=== PATIENT | female | born 1990 | race Asian ===

== ENCOUNTER 2023-10-26 15:02 | Emergency (ER) | payer OTHER ==
[~2023-10-26] VITALS: Ht 157.5 cm; Wt 45.0 kg
[2023-10-26 15:25] VITALS: BP 98/48; PULSE 80; RESP 16; TEMP 97.4; O2SAT 98
[2023-10-29 08:30] LABS: Hepatitis B Surface Antibody Positive (Negative)
[2023-10-29 08:43] LABS: Hepatitis B Surface Antigen Negative (Negative)
== END 2023-10-26 16:04 | disposition home or self-care (01) ==
LOC: ER 15:02
DX: S61.233A Puncture wound without foreign body of left middle finger without damage to nail, initial encounter (principal); Z20.5 Contact with and (suspected) exposure to viral hepatitis; Z79.01 Long term (current) use of anticoagulants; Z79.899 Other long term (current) drug therapy; W46.0XXA Contact with hypodermic needle, initial encounter; Y93.89 Activity, other specified; Y92.89 Other specified places as the place of occurrence of the external cause; Y99.8 Other external cause status
CPT/HCPCS: 36415; 86703; 86706; 86803; 87340

== ENCOUNTER → 2024-01-15 | Outpatient (CLI) | payer OTHER ==
[2024-01-17 09:24] LABS: Hepatitis B Surface Antibody Positive (Negative)
[2024-01-17 09:34] LABS: Hepatitis B Surface Antigen Negative (Negative)
== END | disposition home or self-care (01) ==
LOC: LAB 08:52
PROVIDERS: ATTEND Family Medicine
DX: S69.92XA Unspecified injury of left wrist, hand and finger(s), initial encounter (principal); W46.1XXA Contact with contaminated hypodermic needle, initial encounter; Y93.89 Activity, other specified; Y92.89 Other specified places as the place of occurrence of the external cause; Y99.8 Other external cause status
CPT/HCPCS: 36415; 86703; 86706; 86803; 87340